=== PATIENT | female | born 1960 | race Caucasian/White ===

== ENCOUNTER → 2019-10-07 09:00 | Outpatient (BNVA) | payer MEDICAID, SELFPAY | PROVIDERS: Visit Provider Nurse Practitioner Family | DX: E78.5 Hyperlipidemia, unspecified (principal); M25.532 Pain in left wrist | CPT/HCPCS: 80053; 80061; 85025 ==

== ENCOUNTER → 2020-01-06 16:12 | Outpatient (BNVA) | payer MEDICAID, SELFPAY | PROVIDERS: Visit Provider Nurse Practitioner Family | DX: E55.9 Vitamin D deficiency, unspecified (principal) | CPT/HCPCS: 80053; 82306 ==